=== PATIENT | female | born 1990 | race Two or more races ===

== ENCOUNTER 2017-07-11 13:56 | Emergency (ER) | payer SELFPAY ==
[~2017-07-11] VITALS: Ht 162.6 cm; Wt 108.9 kg
== END 2017-07-11 14:10 | disposition home or self-care (01) ==
LOC: ED 13:56
DX: K08.89 Other specified disorders of teeth and supporting structures (principal); Z98.818 Other dental procedure status

== ENCOUNTER 2024-08-21 14:12 | Emergency (ER) | payer BC ==
[~2024-08-21] VITALS: Ht 162.6 cm; Wt 94.4 kg
[~2024-08-21 14:12] MED LIST: BUTALB-ACETAMI1 EAC2 PO; METFORMIN HCL500 M1 PO; OZEMPIC1 MG/0.71 SUB-Q
[2024-08-21] MEDS ORDERED: CEFDINIR300 MG PO (15:08)
[2024-08-21] MEDS ORDERED: METHYLPREDNISOLO4 M1 (15:08)
[2024-08-21] MEDS ORDERED: SODIUM CHLORIDE 0.9% 1,000 ML IV ONE (15:15)
[2024-08-21] MEDS ORDERED: ondansetron HCL 4 MG/2 ML VIAL IV PRN (15:15)
[2024-08-21 15:22] LABS: BASOPHILS 0.5 % (0-2); EOSINOPHILS 0.6 % (0-6); HEMATOCRIT 42.8 % (35.0-50.0); HEMOGLOBIN 14.3 g/dL (12.0-18.0); LYMPHOCYTES 38.7 % (24-44); MCH 28.2 (27-36); MCHC 33.5 g/dl (30-36); MCV 84.3 fl (81-99); MONOCYTES 6.8 % (0-12); NEUTROPHILS 53.4 % (39-80); PLATELET COUNT 403 K/uL (140-440); RBC 5.08 M/ul (4.3-5.7); RDW 13.8 (10.5-15.0)
[2024-08-21 15:33] LABS: ACETAMINOPHEN 0 ug/mL (10-30); ALBUMIN 3.8 g/dL (3.4-5.0); ALBUMIN/GLOBULIN RATIO 0.93 (1.1-2.4); ALKALINE PHOSPHATASE 67 U/L (46-116); ALT (SGPT) 17 U/L (14-59); AST (SGOT) 11 U/L (15-37); BILIRUBIN, TOTAL 0.3 mg/dL (0.2-1.0); BUN/CREATININE RATIO 15.09 (6.0-28.6); CALCIUM 9.2 mg/dL (8.5-10.1); CARBON DIOXIDE 25 mmol/L (21-32); CHLORIDE 101 mmol/L (98-107); CREATININE, SERUM 1.06 mg/dL (0.55-1.02); GLOMERULAR FILTRATION RATE,EST 70 mL/min (>60); PROTEIN, TOTAL 7.9 g/dL (6.4-8.2); SALICYLATE 0.8 mg/dL (2.8-20.0); UREA NITROGEN 16 mg/dL (7-18)
[2024-08-21] MEDS ORDERED: LORazepam 2 MG/ML VIAL IV ONE (15:45)
[2024-08-21 16:20] LABS: AMPHETAMINES, URINE NEGATIVE (NEGATIVE); BARBITURATES, URINE NEGATIVE (NEGATIVE); BENZODIAZEPINE, URINE NEGATIVE (NEGATIVE); BUPRENORPHINE, URINE NEGATIVE (NEGATIVE); CANNABINOID, URINE NEGATIVE (NEGATIVE); COCAINE, URINE NEGATIVE (NEGATIVE); ECSTASY, URINE NEGATIVE (NEGATIVE); FENTANYL, URINE NEGATIVE (NEGATIVE); METHADONE, URINE NEGATIVE (NEGATIVE); OPIATES, URINE NEGATIVE (NEGATIVE); OXYCODONE, URINE NEGATIVE (NEGATIVE); PHENCYCLIDINE, URINE NEGATIVE (NEGATIVE)
[2024-08-21] MEDS ORDERED: POTASSIUM CHLORIDE 10 MEQ TABCR PO ONE (19:15)
[2024-08-21 20:51] VITALS: BP 150/94
--- NOTE | 2024-08-23 10:54 | EKG ---
[facility] [address] [place] [address] Signed Sinus tachycardia Left posterior fascicular block Abnormal ECG No previous ECGs available Confirmed by Bryan Lopez DO ([id number]) on 08/23/2024 10:54:09 AM Electronically Signed By: BRYAN LOPEZ DO 08/23/24 1054 PATIENT NAME: FLORESIAT MAN CONNOR Electrocardiogram DATE OF : 86 PHYSICIAN: BRYAN LOPEZ DO REPORT #: [id number] REPORT IS CONFIDENTIAL AND NOT TO BE RELEASED WITHOUT AUTHORIZATION
== END 2024-08-21 20:50 | disposition home or self-care (01) ==
LOC: ED 14:12
PROVIDERS: Emergency Medicine
DX: F09 Unspecified mental disorder due to known physiological condition (principal); T38.0X5A Adverse effect of glucocorticoids and synthetic analogues, initial encounter; E11.9 Type 2 diabetes mellitus without complications; Z87.891 Personal history of nicotine dependence
CPT/HCPCS: 36415; 80053; 80307; 84703; 85025; 93005; 93010; 96374; 96375; 99285-25; G0480; J2060; J2405; J7030